=== PATIENT | male | born 2000 | race Caucasian/White ===

== ENCOUNTER 2020-04-27 11:46 | Emergency (ER) | payer SELFPAY ==
[2020-04-27] MEDS ORDERED: CLINDAMYCIN 600MG/D5W 600 MG/50 ML BAG IV ONE (12:21)
[2020-04-27] MEDS ORDERED: TETANUS & DIPHTHERIA TOX,ADULT 0.5 ML VIAL ONE (12:21)
[2020-04-27] MEDS ORDERED: FENTANYL CITR 100 MCG/2 ML ONE (12:21)
[2020-04-27] MEDS ORDERED: NA CHLORIDE 0.9% 1,000 ML ONE ×2 (12:21→15:15)
--- NOTE | 2020-04-27 12:22 | RAD REPORT ---
EXAM DESCRIPTION: CT - CTHCSPWOC - 04/27/2020 11:59 am CLINICAL HISTORY: SMASH INJURYblunt force trauma to the head and face COMPARISON: No comparisons TECHNIQUE: Axial 5 mm thick images of the head were obtained. Axial 2 mm thick images of the cervic al spine were obtained with sagittal and coronal reconstruction images generated and reviewed. All CT scans are performed using dose optimization technique as appropriate and may include automated exposure control or mA/KV adjustment according to patient size. FINDINGS: No intracranial hemorrhage, mass, edema or acute intracranial finding. No suspicion for ac liseth infarction. No extra-axial fluid collections. Mastoid air cells are clear. Orbits, sinuses and fa cial bones are separately detailed. Cervical body height and alignment are normal. No disk space narrowing. No fracture or acute bony abn ormality. Central canal detail is inherently limited. No paraspinal mass or hematoma. IMPRESSION: No intracranial abnormality identified. Facial bones, sinuses and orbits are separately detailed. Negative CT cervical spine examination for acute or significant finding.
[2020-04-27 12:31] LABS: Absolute Lymphocytes (CBC) 2.4 K/uL (0.7-4.9); Basophils % 0.7 % (0-1.3); Hematocrit 44.6 % (39.6-49.0); Lymphocytes % 25.4 % (15.3-44.8); MPV 9.3 fL (7.6-11.3); RBC Red Blood Cell Count 4.96 M/uL (4.33-5.43)
--- NOTE | 2020-04-27 12:43 | RAD REPORT ---
EXAM DESCRIPTION: CT - Facial Bones W/ Mpr - 04/27/2020 11:59 am CLINICAL HISTORY: Fall, right-sided facial trauma COMPARISON: None. TECHNIQUE: Axial 2 millimeter thick images of the facial bones were obtained with sagittal and coron al reconstruction imaging. All CT scans are performed using dose optimization technique as appropriate and may include automated exposure control or mA/KV adjustment according to patient size. FINDINGS: Oblique comminuted fracture is present in the lateral right body of the mandible. Fracture involves the mandible at the most posterior molar small fracture fragments are present along the lee ann n fracture plane. Condyle of the mandible is normally positioned. Multiple small air densities are pr esent along the fracture line. No other mandible fracture. No other facial bone fractures seen. Paranasal sinuses are clear of acute disease. No globe or orbita l content injury. Mastoid air cells are clear. No foreign body in the soft tissues. Contusion and edema changes are present adjacent to the fracture . IMPRESSION: Comminuted fracture is present along the lateral body of the right-sided mandible. No si gnificant displacement or distraction.
[2020-04-27 12:44] LABS: Potassium 3.3 mmol/L (3.5-5.1)
[2020-04-27] MEDS ORDERED: ONDANSETRON 4 MG/2 ML VIAL ONE (13:25)
[2020-04-27] MEDS ORDERED: MORPHINE 4 MG/ML SYR ONE ×2 (13:25→15:15)
[2020-04-27] MEDS ORDERED: LIDOCAINE 1% MPF 30 ML VIAL ONE (13:26)
--- NOTE | 2020-04-27 13:45 | EDPHYS ---
Physician Documentation [facility] Name: Se Serrato Age: 19 yrs Sex: Male : 2000 Arrival Date: 04/27/2020 Time: 11:47 Bed 8 Private MD: ED Physician Angelo Bailey HPI: 04/27 12:33 This 19 yrs old Male presents to ER via Ambulatory with complaints of Head snw Injury-Adult - lacerations, Mouth Injury. 12:33 The patient or guardian reports injury, tenderness. The complaints affect the left snw temporal area and right mandible. Context of injury: The problem was sustained at work, resulted from bullpen flung by backhoe struck pt in the head and pushed him to the ground. Onset: The symptoms/episode began/occurred suddenly, just prior to arrival. Associated signs and symptoms: Loss of consciousness: This patient did not experience any loss of consciousness. Pertinent positives: injury, left zygomatic area and right mandible and posterior neck. The patient has not experienced similar symptoms in the past. It is unknown whether or not the patient has recently seen a physician. Historical: - Allergies: 12:06 No Known Allergies; iw - Home Meds: 12:06 None [Active]; iw - PMHx: 12:06 None; iw - PSHx: 12:06 None; iw - Immunization history:: Last tetanus immunization: unknown. - Immunization history: Last tetanus immunization: unknown. ROS: 12:32 Constitutional: Negative for fever, chills, and weight loss, Eyes: Negative for injury, snw pain, redness, and discharge, ENT: Negative for injury, pain, and discharge, Neck: Negative for injury, pain, and swelling, Cardiovascular: Negative for chest pain, palpitations, and edema, Respiratory: Negative for shortness of breath, cough, wheezing, and pleuritic chest pain, Abdomen/GI: Negative for abdominal pain, nausea, vomiting, diarrhea, and constipation, Back: Negative for injury and pain, : Negative for injury, bleeding, discharge, and swelling, MS/Extremity: Negative for injury and deformity. 12:32 Skin: Positive for laceration(s), of the left temporal area. 12:32 Neuro: Positive for injury post blunt trauma, Negative for loss of consciousness, vomiting. Exam: 12:17 Constitutional: This is a well developed, well nourished patient who is awake, alert, snw and in no acute distress. 12:17 Eyes: Pupils equal round and reactive to light, extra-ocular motions intact. Lids and lashes normal. Conjunctiva and sclera are non-icteric and not injected. Cornea within normal limits. Periorbital areas with no swelling, redness, or edema. ENT: Nares patent. No nasal discharge, no septal abnormalities noted. Tympanic membranes are normal and external auditory canals are clear. Oropharynx with no redness, swelling, or masses, exudates, or evidence of obstruction, uvula midline. Mucous membranes moist. Neck: Trachea midline, no thyromegaly or masses palpated, and no cervical lymphadenopathy. Supple, full range of motion without nuchal rigidity, or vertebral point tenderness. No Meningismus. Chest/axilla: Normal chest wall appearance and motion. Nontender with no deformity. No lesions are appreciated. Cardiovascular: Regular rate and rhythm with a normal S1 and S2. No gallops, murmurs, or rubs. Normal PMI, no JVD. No pulse deficits. Respiratory: Lungs have equal breath sounds bilaterally, clear to auscultation and percussion. No rales, rhonchi or wheezes noted. No increased work of breathing, no retractions or nasal flaring. Abdomen/GI: Soft, non-tender, with normal bowel sounds. No distension or tympany. No guarding or rebound. No evidence of tenderness throughout. Back: No spinal tenderness. No costovertebral tenderness. Full range of motion. Skin: Warm, dry with normal turgor. Normal color with no rashes, no lesions, and no evidence of cellulitis. MS/ Extremity: Pulses equal, no cyanosis. Neurovascular intact. Full, normal range of motion. Neuro: Awake and alert, GCS 15, oriented to person, place, time, and situation. Cranial nerves II-XII grossly intact. Motor strength 5/5 in all extremities. Sensory grossly intact. Cerebellar exam normal. Normal gait. Psych: Awake, alert, with orientation to person, place and time. Behavior, mood, and affect are within normal limits. 12:17 Head/face: Noted is erythema, swelling, tenderness, left temporo-parietal area with imprint of ruler shaped contusions, one vertical laceration at one end and 5cm laterally with flap laceration. Right chin with 5 cm laceration, bleeding controlled. Unable to assess in mouth at this time, awaiting CT results. Vital Signs: 11:50 Temp 97.8; Weight 83.01 kg; Height 6 ft. (182.88 cm); Pain 7/10; iw 12:15 BP 126 / 81; Pulse 65; Resp 18 S; Pulse Ox 100% on R/A; aa5 13:12 BP 120 / 64; Pulse 64; Resp 18; Pulse Ox 99% on R/A; mh5 14:00 BP 134 / 75; Pulse 70; Resp 16 S; Pulse Ox 99% on R/A; aa5 15:00 BP 136 / 72; Pulse 72; Resp 18 S; Temp 98.0(TE); Pulse Ox 100% on R/A; Pain 8/10; aa5 11:50 Body Mass Index 24.82 (83.01 kg, 182.88 cm) iw [place] Coma Score: 11:50 Eye Response: spontaneous(4). Verbal Response: oriented(5). Motor Response: obeys iw commands(6). Total: 15. 12:15 Eye Response: spontaneous(4). Verbal Response: oriented(5). Motor Response: obeys aa5 commands(6). Total: 15. 12:33 Eye Response: spontaneous(4). Verbal Response: oriented(5). Motor Response: obeys snw commands(6). Total: 15. 13:43 Eye Response: spontaneous(4). Verbal Response: oriented(5). Motor Response: obeys rn commands(6). Total: 15. Trauma Score (Adult): 12:15 Eye Response: spontaneous(1); Verbal Response: oriented(1); Motor Response: obeys aa5 commands(2); Systolic BP: > 89 mm Hg(4); Respiratory Rate: 10 to 29 per min(4); [place] Score: 15; Trauma Score: 12 14:00 Eye Response: spontaneous(1); Verbal Response: oriented(1); Motor Response: obeys aa5 commands(2); Systolic BP: > 89 mm Hg(4); Respiratory Rate: 10 to 29 per min(4); Juan Score: 15; Trauma Score: 12 15:00 Eye Response: spontaneous(1); Verbal Response: oriented(1); Motor Response: obeys aa5 commands(2); Systolic BP: > 89 mm Hg(4); Respiratory Rate: 10 to 29 per min(4); [place] Score: 15; Trauma Score: 12 Laceration: 14:18 Wound Repair of 6cm ( 2.4in ) full thickness laceration to submental area. Linear snw shaped.. Distal neuro/vascular/tendon intact. Anesthesia: Local anesthetic administered with 6 mls of 1% lidocaine. Wound prep: Extensive cleansing with hibiclenz by me. Skin closed with 6 6-0 Prolene using simple sutures and sterile technique. Skin closed with 2 6-0 chromic using simple sutures and sterile technique. Dressed with none. Patient tolerated well. MDM: 12:02 Patient medically screened. rn 13:43 Differential diagnosis: Contusion of Laceration of mandibular fracture. Data reviewed: rn vital signs, nurses notes, radiologic studies, CT scan, and as a result, I will admit patient. Counseling: I had a detailed discussion with the patient and/or guardian regarding: the historical points, exam findings, and any diagnostic results supporting the discharge/admit diagnosis, radiology results, the need to transfer to another facility, for higher level of care, [facility] does not immediately have the required specialist. Response to treatment: the patient's symptoms have mildly improved after treatment, and as a result, I will admit patient. Admission orders: after a detailed discussion of the patient's condition and case, the admit orders are written by me. 14:00 Physician consultation: Dr Gay regarding regarding transfer, to [facility]. snw 04/27 11:59 Order name: CBC with Diff; Complete Time: 13:46 snw 04/27 11:59 Order name: Chem 7; Complete Time: 13:46 snw 04/27 11:50 Order name: CT Head C Spine; Complete Time: 13:46 snw 04/27 11:50 Order name: Facial Bones W/O Con CT; Complete Time: 13:46 snw 04/27 11:56 Order name: C-Collar; Complete Time: 12:17 snw Administered Medications: 12:15 Drug: fentaNYL (PF) 50 mcg Route: IVP; Site: right antecubital; aa5 12:15 Drug: NS 0.9% 1000 ml Route: IV; Rate: 1000 ml; Site: right antecubital; aa5 13:11 Follow up: IV Status: Completed infusion; IV Intake: 1000ml aa5 12:20 Drug: Tetanus-Diphtheria Toxoid Adult 0.5 ml {Head Of Commission Department: [employer]. Exp: aa5 09/28/2022. Lot #: [id number]. } Route: IM; Site: right deltoid; 12:25 Drug: Clindamycin 600 mg Route: IVPB; Infused Over: 30 mins; Site: right antecubital; aa5 13:00 Follow up: Response: No adverse reaction; IV Status: Completed infusion aa5 13:15 Drug: morphine 4 mg Route: IVP; Site: right antecubital; aa5 13:15 Drug: Zofran (Ondansetron) 4 mg Route: IVP; Site: right antecubital; aa5 13:50 Drug: Lidocaine (1 %) 1 vials {Note: administered by Alicia Mancia NP during laceration aa5 repair. .} Volume: 20 ml; Route: Infiltration; 15:10 Drug: NS 0.9% 1000 ml Route: IV; Rate: 125 ml/hr; Site: right antecubital; aa5 15:10 Drug: morphine 4 mg Route: IVP; Site: right antecubital; aa5 15:10 Drug: Phenergan 12.5 mg Route: IVP; Site: right antecubital; aa5 Disposition: 16:16 Co-signature as Attending Physician, Angelo Bailey MD. rn Disposition: 04/27/20 13:45 Transfer ordered to [facility]. Diagnosis is Fracture of unspecified part of body of mandible - Comminuted. - Reason for transfer: Higher level of care. - Accepting physician is Dr. Jackson. - Condition is Stable. - Problem is new. - Symptoms have improved. Signatures: Dispatcher [employer] Alicia Sierra, [employer]-Bayw Debra Banks RN RN iw Nieto, Roman, MD MD rn Calderon, Audri, RN RN aa5 Amarilis Sheppard Corrections: (The following items were deleted from the chart) 14:04 13:45 04/27/2020 13:45 Transfer ordered to [facility]. Diagnosis is eb Fracture of unspecified part of body of mandible - Comminuted. Reason for transfer: Higher level of care. Accepting physician is . Condition is Stable. Problem is new. Symptoms have improved. rn 14:27 14:26 Physician consultation: Dr Gay regarding regarding transfer, to [facility]. [facility] 15:24 14:04 04/27/2020 13:45 Transfer ordered to [facility]. Diagnosis is aa5 Fracture of unspecified part of body of mandible - Comminuted. Reason for transfer: Higher level of care. Accepting physician is Dr. Jackson. Condition is Stable. Problem is new. Symptoms have improved. eb
--- NOTE | 2020-04-27 13:45 | ER ---
Nurse's Notes [facility] Name: Se Serrato Age: 19 yrs Sex: Male : 2000 Arrival Date: 04/27/2020 Time: 11:47 Bed 8 Private MD: Diagnosis: Fracture of unspecified part of body of mandible-Comminuted Presentation: 04/27 11:50 Chief complaint: Patient states: piece of equipment swung around and hit him in the head while at work , no LOC, laceration to let side of head and chin, loose front tooth, broken molar (top right), pain to right jaw. 11:50 Risk considerations:. Initial Sepsis Screen: Does the patient meet any 2 criteria? No. iw Patient's initial sepsis screen is negative. Does the patient have a suspected source of infection? No. Patient's initial sepsis screen is negative. Risk Assessment: Do you want to hurt yourself or someone else? Patient reports no desire to harm self or others. 12:02 Coronavirus screen: At this time, the client does not indicate any symptoms associated iw with coronavirus-19. Ebola Screen: Patient negative for fever greater than or equal to 101.5 degrees Fahrenheit, and additional compatible Ebola Virus Disease symptoms Patient denies exposure to infectious person. Patient denies travel to an Ebola-affected area in the 21 days before illness onset. No symptoms or risks identified at this time. Mechanism of Injury: resulted from a direct blow, a heavy object. 12:02 Method Of Arrival: Ambulatory iw 12:02 Acuity: EARLENE 2 iw 12:05 Care prior to arrival: None. Trauma event details: Injury occurred in the county [facility]. Trauma Activation: Not Applicable Physician: ED Physician; Name: ; Notified At: ; Arrived At: Physician: General Surgeon; Name: ; Notified At: ; Arrived At: Physician: Radiology; Name: ; Notified At: ; Arrived At: Physician: Respiratory; Name: ; Notified At: ; Arrived At: Physician: Lab; Name: ; Notified At: ; Arrived At: Historical: - Allergies: 12:06 No Known Allergies; iw - Home Meds: 12:06 None [Active]; iw - PMHx: 12:06 None; iw - PSHx: 12:06 None; iw - Immunization history:: Last tetanus immunization: unknown. - Immunization history: Last tetanus immunization: unknown. Screenin:07 Abuse screen: Denies threats or abuse. Denies injuries from another. Tuberculosis iw screening: No symptoms or risk factors identified. Primary Survey: 11:50 NO uncontrolled hemorrhage observed. A: The patient is alert. Airway: patent. iw Breathing/Chest: Respiratory pattern: regular, Respiratory effort: spontaneous. Circulation: Skin color: pink, Skin temperature: warm, dry. Disability Alert. Exposure/Environment: All clothing and personal items were removed. Forensic evidence collection is not deemed to be indicated at this time. Items placed in patient belonging bag. 11:55 Reassessment Airway Airway Patent Breathing/Chest Circulation Pulses Palpable iw Disability Alert. Secondary Survey: 12:15 HEENT: Head Other Laceration noted to left side of head Face Other laceration noted to aa5 right side of chin. Gastrointestinal: No deficits noted. : No deficits noted. Musculoskeletal: Range of motion: intact in all extremities. Assessment: 11:50 General: Appears uncomfortable, Behavior is calm, cooperative. Pain: Complains of pain iw in head and mouth Pain currently is 7 out of 10 on a pain scale. Neuro: Level of Consciousness is awake, alert, obeys commands, Oriented to person, place, time, situation, Moves all extremities. Full function. EENT: loose front left tooth, bleeding to top right molar. Reports pain in mouth. Cardiovascular: Respiratory: Airway is patent Respiratory effort is even, unlabored. Derm: Skin is healthy with good turgor. Musculoskeletal: Range of motion: intact in all extremities. Injury Description: Laceration sustained to left temporal area is jagged, 0.5 to 2.5 cm long. 12:15 Reassessment: Pt back from CT . aa5 12:15 General: Appears uncomfortable, Behavior is calm, cooperative. Pain: Complains of pain aa5 in left side of the back of head, right jaw Pain currently is 7 out of 10 on a pain scale. Quality of pain is described as shooting, throbbing, Is continuous. Neuro: Level of Consciousness is awake, alert, obeys commands, Oriented to person, place, time, situation. Cardiovascular: Heart tones S1 S2 present Rhythm is regular. Respiratory: Airway is patent Respiratory effort is even, unlabored, Respiratory pattern is regular, symmetrical. GI: Abdomen is flat, non-distended. : No signs and/or symptoms were reported regarding the genitourinary system. EENT: Reports pain in mouth Pt spitting out blood. . Derm: Skin is pink, warm \T\ dry. Laceration noted to left side of back of head, measuring approximately 1in long and another laceration to left side of back of head, measuring approximately 1cm long that appears superficial. Laceration noted to right side of chin, measuring approximately 1in long, mild bleeding noted. Musculoskeletal: Range of motion: intact in all extremities. 13:10 Reassessment: Patient is alert, oriented x 3, equal unlabored respirations, skin aa5 warm/dry/pink. Patient states symptoms have not improved. MD notified of pain level unchanged. . 13:30 Reassessment: Patient is alert, oriented x 3, equal unlabored respirations, skin aa5 warm/dry/pink. Moses,LIQUOR DEPARTMENT MANAGER to bedside for lacerations repair. Lacerations to head and right side of chin cleaned with saline and Hibiclens. . 14:20 Reassessment: Patient is alert, oriented x 3, equal unlabored respirations, skin aa5 warm/dry/pink. Awaiting EMS for transfer. . 15:10 Reassessment: Patient is alert, oriented x 3, equal unlabored respirations, skin aa5 warm/dry/pink. Vital Signs: 11:50 Temp 97.8; Weight 83.01 kg; Height 6 ft. (182.88 cm); Pain 7/10; iw 12:15 BP 126 / 81; Pulse 65; Resp 18 S; Pulse Ox 100% on R/A; aa5 13:12 BP 120 / 64; Pulse 64; Resp 18; Pulse Ox 99% on R/A; mh5 14:00 BP 134 / 75; Pulse 70; Resp 16 S; Pulse Ox 99% on R/A; aa5 15:00 BP 136 / 72; Pulse 72; Resp 18 S; Temp 98.0(TE); Pulse Ox 100% on R/A; Pain 8/10; aa5 11:50 Body Mass Index 24.82 (83.01 kg, 182.88 cm) iw [place] Coma Score: 11:50 Eye Response: spontaneous(4). Verbal Response: oriented(5). Motor Response: obeys iw commands(6). Total: 15. 12:15 Eye Response: spontaneous(4). Verbal Response: oriented(5). Motor Response: obeys aa5 commands(6). Total: 15. 12:33 Eye Response: spontaneous(4). Verbal Response: oriented(5). Motor Response: obeys snw commands(6). Total: 15. 13:43 Eye Response: spontaneous(4). Verbal Response: oriented(5). Motor Response: obeys rn commands(6). Total: 15. Trauma Score (Adult): 12:15 Eye Response: spontaneous(1); Verbal Response: oriented(1); Motor Response: obeys aa5 commands(2); Systolic BP: > 89 mm Hg(4); Respiratory Rate: 10 to 29 per min(4); Juan Score: 15; Trauma Score: 12 14:00 Eye Response: spontaneous(1); Verbal Response: oriented(1); Motor Response: obeys aa5 commands(2); Systolic BP: > 89 mm Hg(4); Respiratory Rate: 10 to 29 per min(4); Juan Score: 15; Trauma Score: 12 15:00 Eye Response: spontaneous(1); Verbal Response: oriented(1); Motor Response: obeys aa5 commands(2); Systolic BP: > 89 mm Hg(4); Respiratory Rate: 10 to 29 per min(4); [place] Score: 15; Trauma Score: 12 ED Course: 11:47 Patient arrived in ED. as 11:57 Chetna Read, RN is Primary Nurse. aa5 11:59 CT Head C Spine In Process Unspecified. EDMS 11:59 Facial Bones W/O Con CT In Process Unspecified. EDMS 12:02 Angelo Bailey MD is Attending Physician. rn 12:04 Triage completed. iw 12:07 Arm band placed on. iw 12:15 Patient has correct armband on for positive identification. Bed in low position. Call aa5 light in reach. Side rails up X2. 12:15 Initial lab(s) drawn, by me, sent to lab. Inserted saline lock: 20 gauge in right aa5 antecubital area, using aseptic technique. Blood collected. 12:15 Patient maintains SpO2 saturation greater than 95% on room air. Thermoregulation: warm aa5 blanket given to patient. 13:40 initiated a transfer with Adriana from the [facility]. eb 13:40 Assist provider with laceration repair on left side of the back of head using rich. aa5 Performed by Alicia HERRERA Patient tolerated well. 13:[address] Jackson the facial trauma doctor deposition reporter for [facility] with eb Dr. Bailey for patient transfer consultation. 13:48 administrative approval given by Adriana Santana Rn/ patient has been accepted to [facility] ER/ Arden Richardson has accepted the patient in transfer/ report to be called to [phone]. 13:50 Assist provider with laceration repair on right side of chin using sutures. Set up aa5 tray. Performed by Alicia HERRERA Patient tolerated well. 15:10 Patient transferred, IV remains in place. aa5 Administered Medications: 12:15 Drug: fentaNYL (PF) 50 mcg Route: IVP; Site: right antecubital; aa5 12:15 Drug: NS 0.9% 1000 ml Route: IV; Rate: 1000 ml; Site: right antecubital; aa5 13:11 Follow up: IV Status: Completed infusion; IV Intake: 1000ml aa5 12:20 Drug: Tetanus-Diphtheria Toxoid Adult 0.5 ml {Cell Tender: [employer]. Exp: aa5 09/28/2022. Lot #: [id number]. } Route: IM; Site: right deltoid; 12:25 Drug: Clindamycin 600 mg Route: IVPB; Infused Over: 30 mins; Site: right antecubital; aa5 13:00 Follow up: Response: No adverse reaction; IV Status: Completed infusion aa5 13:15 Drug: morphine 4 mg Route: IVP; Site: right antecubital; aa5 13:15 Drug: Zofran (Ondansetron) 4 mg Route: IVP; Site: right antecubital; aa5 13:50 Drug: Lidocaine (1 %) 1 vials {Note: administered by Alicia Mancia NP during laceration aa5 repair. .} Volume: 20 ml; Route: Infiltration; 15:10 Drug: NS 0.9% 1000 ml Route: IV; Rate: 125 ml/hr; Site: right antecubital; aa5 15:10 Drug: morphine 4 mg Route: IVP; Site: right antecubital; aa5 15:10 Drug: Phenergan 12.5 mg Route: IVP; Site: right antecubital; aa5 Intake: 13:11 IV: 1000ml; Total: 1000ml. aa5 15:05 Pt used urinal, voided 300cc of dark yellow urine aa5 Outcome: 13:45 ER care complete, transfer ordered by . rn 13:45 Patient's length of stay was not longer than 2 hours. aa5 15:10 Transferred by ground EMS to [facility], Transfer form completed. X-rays sent aa5 w/ patient. Note: Report given to [facility] 15:10 Condition: stable 15:10 Instructed on the need for transfer, Demonstrated understanding of instructions. 15:15 Patient left the ED. aa5 Signatures: Dispatcher [employer] EDMS Alicia Mancia, TIER OVER-C TIER OVER-Csnw Ale Zamora Irene, RN RN iw Nieto, Roman, MD MD rn Calderon, Audri, RN RN aa5 Martinez, [facility] Amarilis Sheppard Corrections: (The following items were deleted from the chart) 12:06 11:50 Chief complaint: Patient states: piece of equipment swung around and hit him in iw the head while at work iw 15:31 15:24 Patient left the ED. aa5 aa5
[2020-04-27] MEDS ORDERED: PROMETHAZINE INJ 25 MG/ML AMP ONE (15:15)
[2020-04-27 15:37] VITALS: TEMP 97.8
[2020-04-27 15:39] VITALS: BP 120/64; O2SAT 99
== END 2020-04-27 15:24 | disposition short-term general hospital (02) ==
LOC: ER 11:46
PROC: 0JQ50ZZ Repair Left Neck Subcutaneous Tissue and Fascia, Open Approach (ICD-10-PCS; principal; 2020-04-27)
DX: S02.609A Fracture of mandible, unspecified, initial encounter for closed fracture (principal); S01.81XA Laceration without foreign body of other part of head, initial encounter; W31.89XA Contact with other specified machinery, initial encounter; Y93.9 Activity, unspecified; Y92.89 Other specified places as the place of occurrence of the external cause; Y99.8 Other external cause status
CPT/HCPCS: 36415; 70450; 70486; 72125; 76377; 80048; 85025; 90471; 90714; 96365; 96375; 99285; J2405; J2550; J3010; J7030